=== PATIENT | male | born 1955 | race Caucasian/White ===

== ENCOUNTER 2025-04-30 12:55 | Observation (INO) ==
--- NOTE | 2025-04-30 13:04 | Emergency Department Note ---
Impression & Plan Complicated UTI (urinary tract infection), Sepsis ED Provider Note NAME: RG IVEY AGE: 69 SEX: M : 1955 ARRIVES VIA: Walk-In INFORMANT: Patient, ED PROVIDER(S): Glen Chris MD CHIEF COMPLAINT: Fever, chills, dysuria, outpatient referral MEDICAL DECISION MAKING: Patient presents with the above. Sepsis protocols initiated review of the patient's chart from [facility] did show that patient was febrile to 101. Patient was treated with empiric cefepime IV 2 g. Patient ordered 500 of IV fluids. Patient's blood work shows a white count of 16 with a normal hemoglobin and platelet count. Kidney function is unremarkable. Bilirubin 1.3. Urinalysis does show concerns for possible infection also blood noted. Given the patient's tachycardia white count and fever prior to arrival do believe the patient would benefit from admission as he does meet for sepsis criteria. Patient's lactate and procalcitonin are not elevated. Patient was ordered different and additional 1 L of IV fluids. I did speak the on-call hospitalist Dr. Tate and the patient was admitted by the medicine service. Patient did not receive 30 cc/kg bolus only 1500 initially given the patient's prior history of heart disease and the patient's lactate and blood pressure were normal. Tachycardia did improve with IV fluids. Discussion w/ other healthcare providers: Dr. Herrmann inpatient medicine service Prior /Outside records reviewed: None Differential diagnosis: Dehydration, UTI, pneumonia, metabolic derangment, electrolyte abnormalities, hypovolemia, anemia, cellulitis among others were considered. Diagnostics, as interpreted by me: ECG: Normal sinus rhythm, rate of 92, normal intervals, nonspecific ST changes noted. No obvious STEMI. Cardiac monitoring: An order was placed for continuous cardiac monitoring. The monitor shows a rate of 95 with sinus rhythm. Patient was placed on pulse oximetry Medical decision rules: None Imaging studies: I informally interpreted the patient's chest x-ray does not show obvious pneumonia with formal report to follow. HPI: Patient presents due to concern for fever chills and dysuria. The patient reports that he had a relatively recent leadless pacemaker that was placed at [place] about 3 weeks ago. The patient states that he had some urinary symptoms for about 5 or 6 days there after because he did have a catheter in place but that resolved. The patient states that he developed the most recent symptoms in the last 24 to 48 hours. Patient states that he did not sleep well was late and was chilled. He did go to an acute care clinic in [place] and was referred here for further evaluation and treatment. Reportedly did receive 1 g of IM Rocephin and was given a prescription for Levaquin. Patient initially had planned to follow-up with his PCP but then changed his mind and was amenable to come to [facility]. Patient states that he has had the dysuria and having smaller voids. He states that he did not know that he had a fever. He denies any chest pains or shortness of breath. He denies any upper respiratory symptoms congestion or cough. No abdominal pain. PAST MEDICAL HISTORY: CAD, bradycardia, hypertension, hyperlipidemia PAST SURGICAL HISTORY: Total knee replacement, coronary stent, pacemaker SOCIAL HISTORY: See Below HOME MEDICATIONS: See Below ALLERGIES: See Below VITALS: See Below PHYSICAL EXAMINATION: GENERAL: NAD, non-toxic. Wearing glasses. EYE EXAM: Normal conjunctiva. PERRL, no anisocoria and EOM's grossly intact w/o pain. OROPHARYNX: Moist mucus membranes, grossly normal dentition. NECK: Trachea midline, no stridor. LUNGS: Clear to auscultation. Normal chest wall mechanics. HEART: NSR, no MRG. ABDOMEN: Abdomen soft, non-tender, no masses, no rebound or guarding. BACK: No CVA TTP. SKIN: No rashes and no bruising. UPPER EXTREMITIES: Upper extremities are grossly normal. LOWER EXTREMITIES: Grossly normal, no edema. NEURO EXAM: Awake and alert, follows commands, no obvious facial asymmetry, normal speech, moves all 4 extremities. Past Med/Surg History Problem List Sepsis (Acute) Renal cyst Pacemaker Complicated UTI (urinary tract infection) (Acute) Carpal tunnel syndrome, right HTN (hypertension) Sleep apnea GERD (gastroesophageal reflux disease) S/P TKR (total knee replacement) Social History Smoking Status: Former smoker Hx Alcohol Use: Yes Alcohol type: beer Hx Substance Use: No Preferred Language: Moldovan Photo Technician Required: No Beliefs That Will Affect Care: None Current Living Situation: Spouse Feels Safe at Home: Yes Assistive Devices: CPAP and Glasses Allergies Allergies Allergy/AdvReac Type Severity Reaction Status Date / Time rosuvastatin [From Crestor] Allergy Unknown Verified 04/30/25 15:59 Home Meds Home Medications Medication Instructions Recorded Confirmed cholecalciferol (vitamin D3) 50 50 mcg PO DAILY 02/07/20 04/30/25 mcg (2,000 unit) capsule clopidogrel 75 mg tablet (Plavix) 75 mg PO DAILY 02/07/20 04/30/25 nitroglycerin 0.4 mg sublingual 0.4 mg sublingual Q5M PRN Chest 02/07/20 04/30/25 tablet Pain B.coagulans,subtilis 1 billion 2 tab PO DAILY 04/30/25 04/30/25 cell-C 45 mg-D3 25 mcg-zinc chew tablet (Probiotic-Immune) coenzyme Q10 100 mg capsule 300 mg PO DAILY 04/30/25 04/30/25 (CoQ-10) ezetimibe 10 mg tablet 10 mg PO DAILY 04/30/25 04/30/25 isosorbide mononitrate 30 mg 30 mg PO QAM 04/30/25 04/30/25 tablet,extended release 24 hr levofloxacin 750 mg tablet 750 mg PO DAILY 04/30/25 04/30/25 metoprolol succinate 25 mg 25 mg PO DAILY 04/30/25 04/30/25 tablet,extended release 24 hr multivitamin with minerals-folic 2 tab PO DAILY 04/30/25 04/30/25 acid 200 mcg chewable tablet (Multivitamin Gummies) omeprazole 20 mg capsule,delayed 20 mg PO DAILY 04/30/25 04/30/25 release pravastatin 80 mg tablet 80 mg PO QAM 04/30/25 04/30/25 rivaroxaban 20 mg tablet (Xarelto) 20 mg PO QPM 04/30/25 04/30/25 valsartan 160 mg tablet 160 mg PO DAILY 04/30/25 04/30/25 Results & Data (ED) Vital Signs Vital Signs - 24 hr 04/30/25 12:56 04/30/25 13:20 04/30/25 13: Temperature 36.9 C Temperature Source Oral Pulse Rate 97 H 85 94 H Pulse Rate [Left Finger] Pulse Rate from SpO2 Sensor Pulse Rhythm Regular Respiratory Rate 18 18 Respiratory Effort / Characteristics Non-Labored Spontaneous Respiratory Depth Normal Respiratory Pattern Regular Blood Pressure 133/82 Blood Pressure [Right Arm] Blood Pressure Mean 99 Blood Pressure Mean [Right Arm] Pulse Oximetry 94 94 Oxygen Delivery Method Room Air Room Air Sepsis Recent Fever Within 48 Hours No Sepsis New/Unexplained Change in Mental Status N/A Sepsis Action Taken by Nursing No Action Required 04/30/25 13:36 04/30/25 14:23 04/30/25 15:00 Temperature 36.9 C Temperature Source Oral Pulse Rate 94 H Pulse Rate [Left Finger] 75 Pulse Rate from SpO2 Sensor 80 Pulse Rhythm Respiratory Rate 20 15 Respiratory Effort / Characteristics Respiratory Depth Respiratory Pattern Blood Pressure 154/110 H Blood Pressure [Right Arm] 133/75 Blood Pressure Mean 124 Blood Pressure Mean [Right Arm] 94 Pulse Oximetry 96 97 Oxygen Delivery Method Sepsis Recent Fever Within 48 Hours Sepsis New/Unexplained Change in Mental Status Sepsis Action Taken by Snf Medications Current Medication List: was personally reviewed by me Laboratory Data Attestation: I reviewed the patient's lab results. 04/30/25 13:25 04/30/25 13:25 Lab Results 04/30/25 04/30/25 Range/Units 13:25 13:30 WBC 16.72 H (4.8-10.8) K/ul RBC 5.07 (4.70-6.10) M/uL Hgb 15.7 (14.0-18.0) g/dl Hct 45.8 (42.0-52.0) % MCV 90.3 (80.0-100.0) fL MCH 31.0 (25.0-34.0) pg MCHC 34.3 (32.0-36.0) g/dL RDW Std Deviation 41.8 (36.4-46.3) fL RDW Coeff of Loan 12.6 (11.5-14.5) % Plt Count 182 (130-400) K/uL MPV 8.7 L (9.4-12.4) fL Immature Gran % (Auto) 0.4 % Neut % (Auto) 82.6 % Lymph % (Auto) 9.0 % [place] % (Auto) 7.4 % Eos % (Auto) 0.4 % Baso % (Auto) 0.2 % Neut # (Auto) 13.81 H (1.40-6.50) K/uL Lymph # (Auto) 1.50 (1.20-3.40) K/uL [place] # (Auto) 1.24 H (0.11-0.59) K/uL Eos # (Auto) 0.06 (0.00-0.50) K/uL Baso # (Auto) 0.04 (0.00-0.20) K/uL Immature Gran # (Auto) 0.07 (0.01-0.20) K/uL Sodium 138 (136-145) mmol/L Potassium 4.0 (3.5-5.1) mmol/L Chloride 101 (98-107) mmol/L Carbon Dioxide 25 (21-32) mmol/L Anion Gap 12 H (3-11) BUN 18 (6-23) mg/dl Creatinine 0.86 (0.6-1.4) mg/dl Est Cr Clr Drug Dosing 94.8 ml/min eGFR 94.32 BUN/Creatinine Ratio 20.9 H (10-20) Glucose 99 (70-99(Fasting)) mg/dl Lactate 0.8 (0.4-2.0) mmol/L Calcium 9.4 (8.6-10.3) mg/dl Magnesium 1.8 (1.7-2.4) mg/dl Total Bilirubin 1.3 H (0.2-1.0) mg/dl Direct Bilirubin 0.2 (0-0.2) mg/dl AST 14 (13-39) U/L ALT 13 (7-52) U/L Alkaline Phosphatase 66 (34-104) U/L Troponin I High Sens 13.5 (0-20) pg/ml Total Protein 7.1 (6.0-8.3) gm/dl Albumin 4.2 (3.4-5.0) gm/dl Procalcitonin 0.16 (0-0.5) ng/ml Urine Color Yellow Urine Appearance Clear (Clear) Urine pH 5.0 (4.5-7.5) Ur Specific [place] 1.023 (1.000-1.030) Urine Protein Trace H (Negative) Urine Glucose (UA) Negative (Negative) Urine Ketones 1+ H (Negative) Urine Blood 2+ H (Negative) Urine Nitrite Negative (Negative) Urine Bilirubin Negative (Negative) Urine Urobilinogen Negative (Negative) Ur Leukocyte Esterase 2+ H (Negative) Urine WBC (Auto) 21-50 H (0-5) /hpf Urine RBC (Auto) 6-10 H (0-2) /hpf U Hyaline Cast (Auto) 0-2 (0-2) /lpf U Epithel Cells (Auto) 0-2 (0-2) /hpf Urine Bacteria (Auto) None Seen (None Seen) Urine Comment Administered Medications Discontinued Medications Cefepime HCl (Maxipime 2000mg) 2,000 mg in 20 mls @ 5 mls/min IV NOW STA; Protocol Stop: 04/30/25 13:14 Last Admin: 04/30/25 13:58 Dose: 5 mls/min Documented By: TAJ Sodium Chloride (Nss) 500 mls @ 999 mls/hr IV .Q31M ONE Stop: 04/30/25 13:41 Last Infusion: 04/30/25 14:28 Dose: Infused Documented By: Admin: 04/30/25 13:57 Dose: 999 mls/hr Documented By: TAJ Sodium Chloride (Nss) 1,000 mls @ 999 mls/hr IV .Q1H1M ONE Stop: 04/30/25 15:16 Last Infusion: 04/30/25 15:37 Dose: Infused Documented By: Admin: 04/30/25 14:23 Dose: 999 mls/hr Documented By: SAV Ioversol (Optiray 320 100ml) 90 ml IV ONCE ONE Stop: 04/30/25 15:46 Last Admin: 04/30/25 15:46 Dose: 90 ml Documented By: OMAR Imaging Data Radiologist's Impression: Chest X-Ray 04/30/25 13:11 XR chest 1V portable CLINICAL HISTORY: Sepsis. COMPARISON STUDY: Chest radiograph February 08, 2018. FINDINGS: Lung volumes are normal. Lungs are clear. There is no pneumothorax or pleural effusion. Cardiac size is normal. Mediastinal contours are normal. There is no evidence for pulmonary edema. IMPRESSION: No acute cardiopulmonary findings. ACT 112: Negative or not required by law. Electronically signed by: Cruz Masters M.D. 04/30/2025 1:41 PM Discharge Plan Visit Data Chief Complaint: Urinary Symptoms Stated Complaint: UTI ED Provider: Glen Chris Discharge Problem: Complicated UTI (urinary tract infection), Sepsis Patient Disposition: Admitted As Inpatient Condition: Good Discharge Instructions Interventions: ED Discharge Assessment Last Done: 09/07/25 17:55 Discharge Problem: Sepsis Qualifiers: Sepsis type: sepsis due to unspecified organism Sepsis acute organ dysfunction status: without acute organ dysfunction Qualified Code(s): A41.9 - Sepsis, unspecified organism
--- NOTE | 2025-04-30 13:42 | XRay Report ---
XR chest 1V portable CLINICAL HISTORY: Sepsis. COMPARISON STUDY: Chest radiograph February 08, 2018. FINDINGS: Lung volumes are normal. Lungs are clear. There is no pneumothorax or pleural effusion. Car diac size is normal. Mediastinal contours are normal. There is no evidence for pulmonary edema. IMPRESSION: No acute cardiopulmonary findings. ACT 112: Negative or not required by law. Electronically signed by: Cruz Masters M.D. 04/30/2025 1:41 PM
[2025-04-30 13:45] LABS: Hematocrit (blood only) 45.8 % (42.0-52.0); Hemoglobin 15.7 g/dl (14.0-18.0); Immature Granulocytes # (auto) 0.07 K/uL (0.01-0.20); Immature Granulocytes % (auto) 0.4 %; Mean Corpuscular Hemoglobin 31.0 pg (25.0-34.0); Mean Corpuscular Volume 90.3 fL (80.0-100.0); Platelet Count 182 K/uL (130-400); RDW Standard Deviation 41.8 fL (36.4-46.3); Red Blood Count 5.07 M/uL (4.70-6.10); White Blood Count 16.72 K/ul (4.8-10.8)
[2025-04-30] MEDS: SODIUM CHLORIDE 0.9% 500 ML IV ONE (13:57)
[2025-04-30] MEDS: CEFEPIME 2000MG 2,000 MG/20 ML SYR IV STA (13:58)
[2025-04-30 14:03] LABS: Alanine Aminotransferase 13.0 U/L (7-52); Alkaline Phosphatase 66.0 U/L (34-104); Anion Gap 12.0 (3-11); Bilirubin,Total 1.3 mg/dl (0.2-1.0); Blood Urea Nitrogen 18.0 mg/dl (6-23); Calcium 9.4 mg/dl (8.6-10.3); Carbon Dioxide 25.0 mmol/L (21-32); Chloride 101.0 mmol/L (98-107); Creatinine Clr Calc Pharmacy 94.8 ml/min; Glucose 99.0 mg/dl (70-99(Fasting)); Magnesium 1.8 mg/dl (1.7-2.4); Potassium 4.0 mmol/L (3.5-5.1); Sodium 138.0 mmol/L (136-145); Total Protein 7.1 gm/dl (6.0-8.3)
[2025-04-30] MEDS: SODIUM CHLORIDE 0.9% 1,000 ML IV ONE (14:23)
[2025-04-30 14:33] LABS: Appearance Urine Clear (Clear); Bacteria Urine Automated None Seen (None Seen); Cast Urine Automated 0-2 /lpf (0-2); Epithelial Cell Urine Auto 0-2 /hpf (0-2); Glucose Urine UA Negative (Negative); WBC Urine Automated 21-50 /hpf (0-5)
[2025-04-30] MEDS ORDERED: ACETAMINOPHEN 325 MG TAB PO PRN (15:20)
[2025-04-30] MEDS ORDERED: MELATONIN 3 MG TAB PO PRN (15:20)
[2025-04-30] MEDS ORDERED: ONDANSETRON INJ 2 MG/ML 2 ML VIAL IV PRN (15:20)
[2025-04-30] MEDS ORDERED: POLYETHYLENE (MIRALAX) 17 GM PACK PO PRN (15:20)
--- NOTE | 2025-04-30 15:35 | History & Physical Report ---
Date of Service April 30, 2025 Assessment & Plan (1) Complicated UTI (urinary tract infection): Plan: Johny Mirza is a 69 yo male with PMH of renal cysts, heart valerie s/p pacemaker (04/04/2025), CAD s/p stent, hypertension, carotid stenosis, sleep apnea. he has pacemaker at [facility] on 04/04 and has vale inserted, since then, been having dysuria, urinary hesitancy and polyuria he's took oral antibiotics for UTI, but has limited improvement. on 04/30, has fever episode and referred to ED for evaluation 1. complicated UTI 2. polyuria, urinary hesitancy 3. hx of renal cysts 4. heart valerie s/p pacemaker 5. CAD s/p stent. hx of cardiac arrest 6. hypertension 1. complicated UTI, cefepime, f/u on blood culture, f/u on urine culture bladder scan to r/o retention 2. poyuria, urinary hesitancy, f/u on bladder scan 3. hx of renal cysts f/u on CT abdomen and pelvis he's lost f/u after 2019 4. heart valerie s/p pacemaker at [facility] 04/04/2025, Dr. Mireya Guadalupe 5. hx of A-fib on xarelto 20mg 6. CAD s/p stent he's on plavix 75mg he's on zetia, he's has statin intolerance he's taking coQ 10 fo rmuscle cramp metoprolol XL 25mg, valsartan 160mg daily he's on issorbide mono 30mg as PRN DVT prophylaxis, he's on xarelto diet: cardiac diet code status: full code; designate his as decision maker (2) Pacemaker: (3) Renal cyst: History of Present Illness Chief Complaint: dysuria, drippling fever episode hx of renal cysts (right side) Primary Care Provider: Jarod Wells MD Johny Mirza is a 69 yo male with hx of CAD s/p stent, cardiac arrest in 2009, right side renal cysts, neuropathy he has heart block and s/p pacemaker insertion at [facility] on 04/04/2025 and has vale catheter inserted. since several days ago, he's been having polyuria, dysuria, and drippling sensation he reportedly take levaquin on outpatient basis, however, he's was spiking a fe loren and recommended by urgent care to come to ED for evaluation in the ED, found CBC of 16-17, blood culture drawn started on cefepime by ED attending. he has complicated UTI failing outpatient antibiotics, he's need IV antibiotics Allergies Allergy/AdvReac Type Severity Reaction Status Date / Time rosuvastatin [From Crestor] Allergy Unknown Verified 02/07/20 09:56 Home Medications Medication Instructions Recorded Confirmed Type amlodipine 5 mg tablet 5 mg PO DAILY 02/07/20 02/07/20 History aspirin 81 mg tablet,delayed 81 mg PO DAILY 02/07/20 02/07/20 History release cholecalciferol (vitamin D3) 50 50 mcg PO DAILY 02/07/20 02/07/20 History mcg (2,000 unit) capsule clopidogrel 75 mg tablet (Plavix) 75 mg PO DAILY 02/07/20 02/07/20 History coenzyme [id number] 100 mg-100 cap PO 02/07/20 02/07/20 History unit capsule isosorbide mononitrate 60 mg 60 mg PO DAILY 02/07/20 02/07/20 History tablet,extended release 24 hr nitroglycerin 0.4 mg sublingual 0.4 mg sublingual Q5M PRN 02/07/20 02/07/20 History tablet orphenadrine citrate 100 mg 100 mg PO BID 02/07/20 02/07/20 History tablet,extended release pantoprazole 40 mg tablet,delayed 40 mg PO DAILY 02/07/20 02/07/20 History release pravastatin 20 mg tablet 20 mg PO DAILY 02/07/20 02/07/20 History Past Med/Surg History Problem List (Updated 04/08/18 @ 23:53 by Souktel Ks) Renal cyst Pacemaker Complicated UTI (urinary tract infection) Carpal tunnel syndrome, right HTN (hypertension) Sleep apnea GERD (gastroesophageal reflux disease) S/P TKR (total knee replacement) Social History Smoking Status: Former smoker Preferred Language: Paraguayan Feels Safe at Home: Yes Review of Systems Review of Systems: Constitutional: No Weight Change, No Fever, No Chills, No Night Sweats, No Fatigue, No Malaise Cardiovascular: No Chest Pain, No SOB, No PND, No Dyspnea on Exertion, No Orthopnea, No Claudication, No Edema, No Palpitations + for pacemaker insertion (march 2025); + for hx of cardiac arrest Respiratory: No Cough, No Sputum, No Wheezing, No Smoke Exposure, No Dyspnea Gastrointestinal: No Nausea, No Vomiting, No Diarrhea, No Constipation, No Pain, No Heartburn, No Anorexia, No Dysphagia, No Hematochezia Genitourinary: + for dysuria, polyuria, urinary hesitancy; no flank pain hx of right side renal cysts Skin: No Skin Lesions, No Pruritis, No Hair Changes, No Breast/Skin Changes, No Nipple Discharge Neuro: No Weakness, No Numbness, No Paresthesias, No Loss of Consciousness, No Syncope, No Dizziness, No Headache, No Coordination Changes, No Recent Falls Heme/Lymph: No Bruising, No Bleeding, No Transfusions History, No Lymphadenopathy Endocrine: No Polyuria, No Polydipsia, No Temperature Intolerance Physical Exam Physical Exam: VITALS: Reviewed. WEIGHT/BMI reviewed. GEN: Healthy appearing, well-developed, NAD. PSYCH: Good Judgment. AOx3. Normal memory, mood, and affect. HEENT -Head: NC/AT; NECK: Supple, with no masses. CV: RRR, no m/r/g. + for pacemaker LUNGS: CTAB, no w/r/c. ABD: Soft, NT/ND, NBS, no masses or organomegaly. : no CVA tenderness SKIN: Warm, well perfused. No skin rashes or abnormal lesions. MSK: + for knee replacement scar. EXT: No clubbing, cyanosis, or edema. NEURO: Ambulating with no limitations. AAOx3 Results & Data Results & Data Vital Signs (Past 12 Hours) Vital Signs Temp Pulse Pulse Resp BP BP Pulse Ox 04/30/25 14:23 75 20 133/75 96 04/30/25 13:36 36.9 C 04/30/25 13:25 94 H 18 94 04/30/25 13:20 85 04/30/25 12:56 36.9 C 97 H 18 133/82 94 O2 Del Method 04/30/25 14:23 04/30/25 13:36 04/30/25 13:25 Room Air 04/30/25 13:20 04/30/25 12:56 Room Air Laboratory Results Laboratory Results - last 72 hr 04/30/25 04/30/25 13:25 13:30 WBC 16.72 H RBC 5.07 Hgb 15.7 Hct 45.8 MCV 90.3 MCH 31.0 MCHC 34.3 RDW Std Deviation 41.8 RDW Coeff of Loan 12.6 Plt Count 182 MPV 8.7 L Immature Gran % (Auto) 0.4 Neut % (Auto) 82.6 Lymph % (Auto) 9.0 [place] % (Auto) 7.4 Eos % (Auto) 0.4 Baso % (Auto) 0.2 Neut # (Auto) 13.81 H Lymph # (Auto) 1.50 [place] # (Auto) 1.24 H Eos # (Auto) 0.06 Baso # (Auto) 0.04 Immature Gran # (Auto) 0.07 Sodium 138 Potassium 4.0 Chloride 101 Carbon Dioxide 25 Anion Gap 12 H BUN 18 Creatinine 0.86 Est Cr Clr Drug Dosing 94.8 eGFR 94.32 BUN/Creatinine Ratio 20.9 H Glucose 99 Lactate 0.8 Calcium 9.4 Magnesium 1.8 Total Bilirubin 1.3 H Direct Bilirubin 0.2 AST 14 ALT 13 Alkaline Phosphatase 66 Troponin I High Sens 13.5 Total Protein 7.1 Albumin 4.2 Procalcitonin 0.16 Urine Color Yellow Urine Appearance Clear Urine pH 5.0 Ur Specific [place] 1.023 Urine Protein Trace H Urine Glucose (UA) Negative Urine Ketones 1+ H Urine Blood 2+ H Urine Nitrite Negative Urine Bilirubin Negative Urine Urobilinogen Negative Ur Leukocyte Esterase 2+ H Urine WBC (Auto) 21-50 H Urine RBC (Auto) 6-10 H U Hyaline Cast (Auto) 0-2 U Epithel Cells (Auto) 0-2 Urine Bacteria (Auto) None Seen Urine Comment Medications Administered Current Inpatient Medications Acetaminophen (Acetaminophen 325 Mg Tab) 650 mg PO Q4H PRN PRN Reason: pain/fever Stop: 05/30/25 15:19 Cefepime HCl (Maxipime 2000mg) 2,000 mg in 20 mls @ 5 mls/min IV Q12H [facility]; Protocol Stop: 05/06/25 03:14 Melatonin (Melatonin 3 Mg Tab) 3 mg PO HS PRN PRN Reason: Insomnia Stop: 05/30/25 15:19 Metoprolol Succinate (Metoprolol Succ 25mg Ext Rel Tab) 25 mg PO QAM ELLY Stop: 05/31/25 08:59 Ondansetron HCl (Ondansetron Inj 2 Mg/Ml 2 Ml Vial) 4 mg IV Q6H PRN PRN Reason: Nausea Stop: 05/30/25 15:19 Polyethylene Glycol (Polyethylene (Miralax) 17 Gm Pack) 17 gm PO DAILY PRN PRN Reason: Constipation Stop: 05/30/25 15:19 Tamsulosin HCl (Tamsulosin Hcl 0.4 Mg Cap) 0.4 mg PO HS ELLY Stop: 05/30/25 20:59 Valsartan (Valsartan 80 Mg Tab) 160 mg PO QAM ELLY Stop: 05/31/25 08:59 PG Care Time/CCT Total # of Minutes Spent Total Time Spent with Patient: Total time spent is greater than 50% in coordination of care (as documented) at patient's floor/unit and/or counseling patient: Coding Level of Care Code 19781 INT INP/OBS CARE 2/55MIN Diagnoses Complicated UTI (urinary tract infection) N39.0 Pacemaker Z95.0 Renal cyst N28.1 Time Spent (min) 50
[2025-04-30] MEDS: OPTIRAY 320 100ml IV ONE (15:46)
--- NOTE | 2025-04-30 17:54 | CT Scan Report ---
Exam: CT abdomen/pelvis without and with contrast. Reason for exam: Urinary tract infection with hematuria. Rule out stones and bladder mass. Previous studies: None FINDINGS: Lower lung zones are essentially clear. Liver, pancreas and spleen are unremarkable. Right adrenal gland is unremarkable. 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 Follow-up study to ensure stable size and rule out any malignant potential is recommended however. Right kidney shows several cysts the largest of which measures 8.7 cm in diameter lower pole. However this has a typical characteristics for plaque-like areas of calcification and wall thickening in its inferior aspect. This should be further evaluated with renal ultrasound and if necessary MRI study to rule out neoplasm within this cyst. Left kidney is unremarkable. No radiopaque calculus or hydronephrosis is seen on either kidney. Appendix is unremarkable. Extensive aortic calcifications are present without aneurysm at the examined levels. Diverticulosis seen in the descending and sigmoid colon without active diverticulitis. There is some mild diffuse thickening of the urinary bladder. Prostate is markedly enlarged with invagination in the base of the bladder and multiple calcifications. Otherwise no intrinsic filling defects seen within the urinary bladder although it is suboptimally distended. No other active pelvic mass or adenopathy is seen at this time. No bowel obstruction or free air is seen. Small bilateral inguinal hernias containing fat only are present. IMPRESSION: 1. Markedly enlarged prostate gland with invagination and the base of the urinary bladder. 2. There is diffuse thickening of the urinary bladder however no other definite filling defect is seen on CT images at this time. 3. Large cyst on the right kidney with atypical characteristics including mural thickening and calcification. This should be further evaluated with ultrasound exam, and if necessary MRI study to rule out suspicious neoplastic characteristics occurring within a cyst. 4. Lipomatous mass of the left adrenal gland. Statistically these most often represent myelolipoma, although other neoplasms are possible. Follow-up with repeat CT and/or MRI study in 3 months is indicated to ensure stable size and characteristics of this adrenal mass. Electronically signed by Kenny Multani 04-30-2025 5:54 PM
[2025-04-30] MEDS: TAMSULOSIN HCL 0.4 MG CAP PO SCH (21:53)
[2025-04-30] MEDS: ORPHENADRINE CITRATE 100 MG TABCR PO SCH (22:03)
[2025-05-01] MEDS: CEFEPIME 2000MG 2,000 MG/20 ML SYR IV SCH (02:29)
[2025-05-01 06:17] LABS: Hematocrit (blood only) 43.5 % (42.0-52.0); Hemoglobin 15.0 g/dl (14.0-18.0); Mean Corpuscular Hemoglobin 32.0 pg (25.0-34.0); Mean Corpuscular Volume 92.8 fL (80.0-100.0); Platelet Count 160 K/uL (130-400); RDW Standard Deviation 42.6 fL (36.4-46.3); Red Blood Count 4.69 M/uL (4.70-6.10); White Blood Count 13.41 K/ul (4.8-10.8)
[2025-05-01 06:39] LABS: Anion Gap 5.0 (3-11); Blood Urea Nitrogen 14.0 mg/dl (6-23); Calcium 8.9 mg/dl (8.6-10.3); Carbon Dioxide 28.0 mmol/L (21-32); Chloride 106.0 mmol/L (98-107); Creatinine Clr Calc Pharmacy 100.5 ml/min; Glucose 105.0 mg/dl (70-99(Fasting)); Potassium 4.0 mmol/L (3.5-5.1); Sodium 139.0 mmol/L (136-145)
[2025-05-01] MEDS: ASPIRIN 81 MG ECTAB PO SCH (08:50)
[2025-05-01] MEDS: VALSARTAN 80 MG TAB PO SCH (08:57)
[2025-05-01] MEDS: RIVAROXABAN 20 MG TAB PO SCH (08:57)
[2025-05-01] MEDS: METOPROLOL SUCC 25MG EXT REL TAB PO SCH (08:57)
[2025-05-01] MEDS: CHOLECALCIFEROL 25 MCG (1000 UNITS) TAB PO SCH (08:57)
[2025-05-01] MEDS: CLOPIDOGREL BISULFATE 75 MG TAB PO SCH (08:57)
[2025-05-01] MEDS ORDERED: NON-FORMULARY MEDICATION (Coenzyme Q10-Vitamin E 100-100 mg-unit capsule) PO SCH (09:00)
--- NOTE | 2025-05-01 12:25 | Electrocardiogram Report ---
Test Reason : Blood Pressure : */* mmHG Vent. Rate : 92 BPM Atrial Rate : 92 BPM P-R Int : 136 ms QRS Dur : 82 ms QT Int : 350 ms P-R-T Axes : 48 19 21 degrees QTcB Int : 432 ms Normal sinus rhythm Septal infarct , age undetermined Abnormal ECG No previous ECGs available Confirmed by Steve Cabrera ([id number]) on 05/01/2025 12:25:23 PM Referred By: REFERRED SELF Confirmed By: Steve Cabrera
--- NOTE | 2025-05-01 15:09 | Electrocardiogram Report ---
Test Reason : Blood Pressure : */* mmHG Vent. Rate : 124 BPM Atrial Rate : * BPM P-R Int : * ms QRS Dur : 102 ms QT Int : 288 ms P-R-T Axes : * 15 203 degrees QTcB Int : 413 ms Atrial fibrillation with rapid ventricular response Marked ST abnormality, possible inferior subendocardial injury Abnormal ECG When compared with ECG of 30-Apr-2025 13:19, Atrial fibrillation has replaced Sinus rhythm ST more depressed Lateral leads Nonspecific T wave abnormality now evident in Inferior leads T wave inversion now evident in Lateral leads Confirmed by Steve Cabrera ([id number]) on 05/01/2025 3:08:57 PM Referred By: REFERRED SELF Confirmed By: Steve Cabrera
--- NOTE | 2025-05-01 16:43 | Hospitalist Progress Note ---
Date of Service May 01, 2025 Assessment & Plan (1) Complicated UTI (urinary tract infection): Plan: Johny Mirza is a 69 yo male with PMH of renal cysts, heart valerie s/p pacemaker (04/04/2025), CAD s/p stent, hypertension, carotid stenosis, sleep apnea. he has pacemaker at [facility] on 04/04 and has vale inserted, since then, been having dysuria, urinary hesitancy and polyuria he's took oral antibiotics for UTI, but has limited improvement. on 04/30, has fever episode and referred to ED for evaluation 1. complicated UTI 2. polyuria, urinary hesitancy 3. hx of renal cysts 4. heart valerie s/p pacemaker 5. CAD s/p stent. hx of cardiac arrest 6. hypertension 1. complicated UTI, cefepime, f/u on blood culture, f/u on urine culture has vale inserted during the pacemaker insertion bladder scan to r/o retention still has high WBC of 13-14. c/w cefepime urine culture pending 2. polyuria, urinary hesitancy, f/u on bladder scan 3. hx of renal cysts f/u on CT abdomen and pelvis he's lost f/u after 2019 4. heart valerie s/p pacemaker at [facility] 04/04/2025, Dr. Mireya Guadalupe 5. hx of A-fib on xarelto 20mg 6. CAD s/p stent he's on plavix 75mg he's on zetia, he's has statin intolerance he's taking coQ 10 fo rmuscle cramp metoprolol XL 25mg, valsartan 160mg daily he's on issorbide mono 30mg as PRN DVT prophylaxis, he's on xarelto diet: cardiac diet code status: full code; designate his as decision maker (2) Pacemaker: (3) Renal cyst: Admission and Anticipated Discharge Date Admission Date: April 30, 2025 Subjective he has episode of A-fib overnight, off cpap micro sensitivity still pending called lab but no result still need IV antibiotics, still have high WBC despite IV antibiotics Review of Systems Review of Systems: Constitutional: No Weight Change, No Fever, No Chills, No Night Sweats, No Fatigue, No Malaise Cardiovascular: No Chest Pain, No SOB, No PND, No Dyspnea on Exertion, No O rthopnea, No Claudication, No Edema, No Palpitations Respiratory: No Cough, No Sputum, No Wheezing, No Smoke Exposure, No Dyspnea Gastrointestinal: No Nausea, No Vomiting, No Diarrhea, No Constipation, No Pain, No Heartburn, No Anorexia, No Dysphagia, No Hematochezia, No Melena, No Flatulence, No Jaundice Genitourinary: + for dysuria Musculoskeletal: No Arthralgias, No Myalgias, No Joint Swelling, No Joint Stiffness, No Back Pain, No Neck Pain, No Injury History Neuro: No Weakness, No Numbness, No Paresthesias, No Loss of Consciousness, No Syncope, No Dizziness, No Headache, No Coordination Changes, No Recent Falls Psych: No Anxiety/Panic, No Depression, No Insomnia, No Personality Changes, No Delusions, No Rumination, No SI/HI/AH/VH, No Social Issues, No Memory Changes, No Violence/Abuse Hx., No Eating Concerns Physical Exam Physical Exam: VITALS: Reviewed. WEIGHT/BMI reviewed. GEN: Healthy appearing, well-developed, NAD. -Head: NC/AT; -Mouth and throat: MMM. Normal gums, muc brianna, palate,. Good dentition. NECK: Supple, with no masses. CV: RRR, no m/r/g. LUNGS: CTAB, no w/r/c. ABD: Soft, NT/ND, NBS, no masses or organomegaly. SKIN: Warm, well perfused. No skin rashes or abnormal lesions. MSK: No deformities, Normal gait. EXT: No clubbing, cyanosis, or edema. NEURO: Ambulating with no limitations. Normal muscle strength and tone. No focal deficits. Results & Data Results & Data Vital Signs (Past 12 Hours) Vital Signs Temp Pulse Pulse Resp BP Pulse Ox O2 Del Method 05/01/25 16:10 36.8 C 61 18 142/69 H 97 Room Air 05/01/25 15:55 60 05/01/25 11:43 67 05/01/25 11:19 36.8 C 59 L 18 115/71 96 Room Air 05/01/25 08:19 37.1 C 61 20 152/88 H 92 Room Air PG Care Time/CCT Total # of Minutes Spent Total Time Spent with Patient: Total time spent is greater than 50% in coordination of care (as documented) at patient's floor/unit and/or counseling patient: Coding Level of Care Code 01092 SUB INP/OBS CARE 235MIN Diagnoses Complicated UTI (urinary tract infection) N39.0 Pacemaker Z95.0 Renal cyst N28.1 Time Spent (min) 25
[2025-05-02 07:15] LABS: Hematocrit (blood only) 43.8 % (42.0-52.0); Hemoglobin 14.6 g/dl (14.0-18.0); Mean Corpuscular Hemoglobin 31.1 pg (25.0-34.0); Mean Corpuscular Volume 93.2 fL (80.0-100.0); Platelet Count 177 K/uL (130-400); RDW Standard Deviation 43.8 fL (36.4-46.3); Red Blood Count 4.70 M/uL (4.70-6.10); White Blood Count 9.68 K/ul (4.8-10.8)
[2025-05-02 08:08] VITALS: RESP 18
[2025-05-02 08:09] LABS: Anion Gap 7.0 (3-11); Blood Urea Nitrogen 26.0 mg/dl (6-23); Calcium 9.2 mg/dl (8.6-10.3); Carbon Dioxide 27.0 mmol/L (21-32); Chloride 107.0 mmol/L (98-107); Creatinine Clr Calc Pharmacy 84.9 ml/min; Glucose 107.0 mg/dl (70-99(Fasting)); Potassium 4.2 mmol/L (3.5-5.1); Sodium 141.0 mmol/L (136-145)
[2025-05-02 11:24] VITALS: TEMP 98.1; O2SAT 95
[2025-05-02 14:50] VITALS: BP 119/77
[2025-05-02 15:19] VITALS: PULSE 60
--- NOTE | 2025-05-02 17:17 | Discharge Summary ---
Discharge Summary Date of Service May 02, 2025 Principal Dx & Hospital Course #1 = Principal Diagnosis (1) Complicated UTI (urinary tract infection): Hospital course Mr. Nguyen is a 69 yo male with PMH of renal cysts, heart block s/p leadless paceamaker (04/04/2025), CAD s/p stent, carotid stenosis sleep apnea on CPAP on 04/04, has leadless pacemaker insertion at [facility], but has vlae inserted he been having dysuria, hesitancy and polyuria, he's went to urgent care and was prescribed levaquin, however,he spike fever and came here for evaluaton he was started on cefepime and fever resolved, he was still has dysuria and WBC of 12-13 on 05/01/2025 and decision is to keep him on another day of cefepme his urine culture is negative, but that likely related to levaquin usage given by urgent care he was dc home on 2024 with Augmentin, and minocycline we discussed that he need close f/u with urology if dysuria recurrent. he was advised close f/u with the renal cysts Johny Mirza is a 69 yo male with PMH of renal cysts, heart valerie s/p pacemaker (04/04/2025), CAD s/p stent, hypertension, carotid stenosis, sleep apnea. he has pacemaker at [facility] on 04/04 and has vale inserted, since then, been having dysuria, urinary hesitancy and polyuria he's took oral antibiotics for UTI, but has limited improvement. on 04/30, has fever episode and referred to ED for evaluation 1. complicated UTI 2. polyuria, urinary hesitancy 3. hx of renal cysts 4. heart valerie s/p pacemaker 5. CAD s/p stent. hx of cardiac arrest 6. hypertension 1. complicated UTI, cefepime, f/u on blood culture, f/u on urine culture has vale inserted during the pacemaker insertion bladder scan to r/o retention still has high WBC of 13-14. c/w cefepime urine culture pending 2. polyuria, urinary hesitancy, f/u on bladder scan 3. hx of renal cysts f/u on CT abdomen and pelvis he's lost f/u after 2019 4. heart valerie s/p pacemaker at [facility] 04/04/2025, Dr. Mireya Guadalupe 5. hx of A-fib on xarelto 20mg 6. CAD s/p stent he's on plavix 75mg he's on zetia, he's has statin intolerance he's taking coQ 10 fo rmuscle cramp metoprolol XL 25mg, valsartan 160mg daily he's on issorbide mono 30mg as PRN DVT prophylaxis, he's on xarelto diet: cardiac diet code status: full code; designate his as decision maker (2) Pacemaker: (3) Renal cyst: Admission HPI Per Admitting Provider Johny Mirza is a 69 yo male with hx of CAD s/p stent, cardiac arrest in 2009, right side renal cysts, neuropathy he has heart block and s/p pacemaker insertion at [facility] on 04/04/2025 and has vale catheter inserted. since several days ago, he's been having polyuria, dysuria, and drippling sensation he reportedly take levaquin on outpatient basis, however, he's was spiking a fever and recommended by urgent care to come to ED for evaluation in the ED, found CBC of 16-17, blood culture drawn started on cefepime by ED attending. he has complicated UTI failing outpatient antibiotics, he's need IV antibiotics Discharge Exam VITALS: Reviewed. WEIGHT/BMI reviewed. GEN: Healthy appearing, well-developed, NAD. PSYCH: Good Judgment. AOx3. Normal memory, mood, and affect. HEENT -Head: NC/AT; NECK: Supple, with no masses. CV: RRR, no m/r/g. LUNGS: CTAB, no w/r/c. ABD: Soft, NT/ND, NBS, no masses or organomegaly. : N/A SKIN: Warm, well perfused. No skin rashes or abnormal lesions. MSK: No deformities, Normal gait. EXT: No clubbing, cyanosis, or edema. NEURO: AAOx3 Discharge Plan Discharge Items Patient Disposition: Home - Self-Care Reason For Visit: UTI, FAILED ORAL AB, FEVER Discharge Diagnosis: complicated UTI Condition on Discharge: Good Activity: Resume your previous activity Non-emergency contact: Primary Care Provider Call non-emergency contact if: your symptoms worsen and you have a fever Follow-up/Referrals: Jarod Wells MD [Primary Care Provider] - 05/08/25 1:30 pm Diet: Heart Healthy and Low Fat Addtl Attending Provider Instructions: you need to see your PCP and repeat urine culture Pending Studies at Discharge: Yes Studies:: repeat CBC (blood work), BMP, and urine culture Stand-Alone Forms: [facility], Smoking Cessation Medications and DC Order Prescriptions: New tamsulosin 0.4 mg Capsule 0.4 mg PO HS 30 Days Qty: 30 0RF amoxicillin-pot clavulanate 875-125 mg tablet 1 tab PO BID 7 Days Qty: 14 0RF minocycline 100 mg capsule 100 mg PO BID 7 Days Qty: 14 0RF Continued cholecalciferol (vitamin D3) 50 mcg (2,000 unit) capsule 50 mcg PO DAILY clopidogrel [Plavix] 75 mg tablet 75 mg PO DAILY nitroglycerin 0.4 mg tablet, sublingual 0.4 mg SL Q5M PRN (Reason: Chest Pain) isosorbide mononitrate 30 mg tablet extended release 24 hr 30 mg PO QAM pravastatin 80 mg tablet 80 mg PO QAM omeprazole 20 mg capsule,delayed release(DR/EC) 20 mg PO DAILY metoprolol succinate 25 mg tablet extended release 24 hr 25 mg PO DAILY valsartan 160 mg tablet 160 mg PO DAILY ezetimibe 10 mg tablet 10 mg PO DAILY coenzyme Q10 [CoQ-10] 100 mg Capsule 300 mg PO DAILY Xarelto 20 mg tablet 20 mg PO QPM multivit with min-folic acid [Multivitamin Gummies] 200 mcg Tablet,Chewable 2 tab PO DAILY Probiotic-Immune 1 billion cell- 45 mg-25 mcg Tablet,Chewable 2 tab PO DAILY Discontinued levofloxacin 750 mg tablet 750 mg PO DAILY Discharge Orders: Discharge Order (Routine); Ordered 05/02/25 Ordered By: Lisette Herrmann Admission Data Admit Date/Time: 04/30/25 16:14 Attending Provider: Lisette Herrmann Admit Provider: Lisette Herrmann Primary Care Provider: Jarod Wells Other Providers: Lisette Herrmann Other Interventions: Discharge Summary Assessment (RN) Last Done: 05/02/25 14:48 Hospital Stay Data Consultations 04/30/25 14:16 ED Decision to Admit Stat Diagnostic Imagining Performed 04/30/25 15:35 CT abdomen pelvis wo/w con Routine Pending Results Patient Have Any Pending Studies at Discharge: Yes Discharge Instructions Given to Patient (Per Discharging Provider) you need to see your PCP and repeat urine culture Total Time Total Time Spent Total Time Spent (In Minutes): 35 Coding Level of Care Code 95620 IN/OBS DISCH 30 MIN/LESS Diagnoses Complicated UTI (urinary tract infection) N39.0 Pacemaker Z95.0 Renal cyst N28.1 Time Spent (min) 25
== END 2025-05-02 15:28 | disposition home or self-care (01) | DRG 690 ==
LOC: ED 12:55 → EDINP 15:20 → INTOOBSV 16:14 → 2N 17:55